=== PATIENT | male | born 1990 | race Hispanic/Latino ===

== ENCOUNTER 2025-10-06 10:42 | Emergency (ER) | payer SELFPAY ==
[2025-10-06 11:57] LABS: #Basophils 0.03 10x3/uL (0.0-0.2); #Eosinophils Less than 0.03 10x3/uL (0.0-0.7); #Monocytes 0.38 10x3/uL (0.11-0.59); #Neutrophils 3.63 10x3/uL (1.40-6.50); %Basophils 0.5 % (0.0-1.0); %Eosinophils 0.3 % (0.0-10.0); %Lymphocytes 36.8 % (21.0-51.0); %Monocytes 5.9 % (0.0-10.0); %Neutrophils 56.3 % (42.0-75.0); Hematocrit 47.4 % (42.0-52.0); Hemoglobin 15.3 g/dL (14.0-18.0); Mean Corpuscular Hemoglobin 24.6 pg (27.0-31.0); Mean Corpuscular Volume 76.3 fL (78.0-98.0); Platelet Count 247 10x3/uL (130-400); Red Blood Cell (RBC) Count 6.21 mill/uL (4.70-6.10); White Blood Cell (WBC) Count 6.44 10x3/uL (4.8-10.8)
[2025-10-06] MEDS ORDERED: Bacitracin 1 PK ONE (13:07)
== END 2025-10-06 13:01 | disposition home or self-care (01) ==
LOC: ERS 10:42
DX: T20.26XA Burn of second degree of forehead and cheek, initial encounter (principal); T22.20XA Burn of second degree of shoulder and upper limb, except wrist and hand, unspecified site, initial encounter; T21.21XA Burn of second degree of chest wall, initial encounter; T20.24XA Burn of second degree of nose (septum), initial encounter; T26.01XA Burn of right eyelid and periocular area, initial encounter; T31.11 Burns involving 10-19% of body surface with 10-19% third degree burns; Z23 Encounter for immunization; X19.XXXA Contact with other heat and hot substances, initial encounter
CPT/HCPCS: 85025; 90471; 90715; 96374; 96375; J2272